=== PATIENT | female | born 1925 | race Caucasian/White ===

== ENCOUNTER → 2016-06-23 | Outpatient (REF) | payer MEDICARE ==
[~2016-06-23] MED LIST: ASCO500T21 PO; IMIP25TA14 PO; INSU100I14 SQ; INSU100I29 SQ; LACT1CAP62 PO; LORA1TAB PO; LVT.025T PO; METH1TAB15 PO; OXYB5TAB9 PO; POTA20TA15 PO; PRD5T PO; SODI1TAB16 PO
[2016-06-23 10:45] LABS: BASOPHILS % (AUTO) 0 % (0-2); EOSINOPHILS # (AUTO) 0.2 10^3uL; EOSINOPHILS % (AUTO) 2 % (0-4); LYMPHOCYTES # (AUTO) 2.2 X10^3; MEAN CORPUSCULAR HEMOGLOBIN 29.7 PG (26.0-34.0); MEAN CORPUSCULAR HGB CONC 33.7 g/dL (31.0-37.0); MEAN CORPUSCULAR VOLUME 88 FL (80-100); MEAN PLATELET VOLUME 10.8 FL (6.0-9.5); MONOCYTES # (AUTO) 0.9 X10^3; MONOCYTES % (AUTO) 11 % (3-11); NEUTROPHILS # (AUTO) 4.8 X10^3; NEUTROPHILS % (AUTO) 59 % (51-67); PLATELET COUNT 126 10^3uL (150-450); WHITE BLOOD COUNT 8.09 10^3uL (4.0-11.0)
== END ==
LOC: LAB 10:34
PROVIDERS: ATTEND Internal Medicine Hematology & Oncology
DX: D69.6 Thrombocytopenia, unspecified (principal)
CPT/HCPCS: 85025

== ENCOUNTER → 2016-07-28 | Outpatient (REF) | payer MEDICARE ==
[2016-07-28 14:41] LABS: BILIRUBIN,URINE Negative (Negative); COLOR,URINE Yellow; GLUCOSE, URINE (UA) Negative (Negative); LEUKOCYTE ESTERASE, URINE 1+ (Negative); UROBILINOGEN,URINE 0.2 mg/dL (0.2-1.0)
[2016-07-28 14:42] LABS: CLARITY,URINE Slightly Cloudy; URINE CENTRIFUGED VOLUME 12 mL
[2016-07-28 14:47] LABS: RBC,URINE 0-2 /HPF
[2016-07-28 16:10] LABS: ANION GAP 14.7 MEQ/L (3-15)
== END ==
LOC: LAB 14:31
PROVIDERS: ATTEND Family Medicine
DX: C85.90 Non-Hodgkin lymphoma, unspecified, unspecified site (principal); E09.65 Drug or chemical induced diabetes mellitus with hyperglycemia
CPT/HCPCS: 80048; 81003; 81015

== ENCOUNTER → 2016-08-03 | Outpatient (REF) | payer MEDICARE ==
[2016-08-03 16:52] LABS: BILIRUBIN,URINE Negative (Negative); CLARITY,URINE Clear; COLOR,URINE Yellow; GLUCOSE, URINE (UA) Negative (Negative); LEUKOCYTE ESTERASE, URINE Negative (Negative); UROBILINOGEN,URINE 0.2 mg/dL (0.2-1.0)
[2016-08-03 17:07] LABS: URINE CENTRIFUGED VOLUME 12 mL
== END ==
LOC: LAB 07-28 15:47
PROVIDERS: ATTEND Family Medicine
DX: N39.0 Urinary tract infection, site not specified (principal)
CPT/HCPCS: 80048; 81003; 81015; 87088

== ENCOUNTER → 2016-08-11 | Outpatient (REF) | payer MEDICARE | LOC: LAB 12:10 | PROVIDERS: ATTEND Family Medicine | DX: E11.9 Type 2 diabetes mellitus without complications (principal) | CPT/HCPCS: 83036 ==

== ENCOUNTER → 2016-08-15 | Outpatient (REF) | payer MEDICARE ==
[2016-08-15 13:24] LABS: BASOPHILS % (AUTO) 0 % (0-2); EOSINOPHILS # (AUTO) 0.2 10^3uL; EOSINOPHILS % (AUTO) 2 % (0-4); LYMPHOCYTES # (AUTO) 1.7 X10^3; MEAN CORPUSCULAR HEMOGLOBIN 30.2 PG (26.0-34.0); MEAN CORPUSCULAR VOLUME 86 FL (80-100); MEAN PLATELET VOLUME 10.9 FL (6.0-9.5); MONOCYTES # (AUTO) 0.9 X10^3; MONOCYTES % (AUTO) 8 % (3-11); NEUTROPHILS # (AUTO) 7.9 X10^3; NEUTROPHILS % (AUTO) 74 % (51-67); PLATELET COUNT 150 10^3uL (150-450); WHITE BLOOD COUNT 10.71 10^3uL (4.0-11.0)
== END ==
LOC: LAB 12:12
PROVIDERS: ATTEND Internal Medicine Hematology & Oncology
DX: D69.6 Thrombocytopenia, unspecified (principal)
CPT/HCPCS: 85025

== ENCOUNTER → 2016-09-22 | Outpatient (REF) | payer MEDICARE ==
[2016-09-22 14:31] LABS: MEAN CORPUSCULAR HEMOGLOBIN 29.6 PG (26.0-34.0); MEAN CORPUSCULAR VOLUME 87 FL (80-100); MEAN PLATELET VOLUME 10.2 FL (6.0-9.5); PLATELET COUNT 122 10^3uL (150-450); WHITE BLOOD COUNT 7.81 10^3uL (4.0-11.0)
[2016-09-22 15:17] LABS: BAND NEUTROPHILS % 1 % (0-6); EOSINOPHILS % 1 % (0-4); LYMPHOCYTES # 1.1 #; MONOCYTES # 0.1 #; MONOCYTES % 1 % (3-11); RBC MORPH NORMAL (NORMAL); SEGMENTED NEUTROPHILS % 83 % (51-67); TOTAL CELLS COUNTED 100
[2016-09-22 15:30] LABS: ANION GAP 14.1 MEQ/L (3-15)
== END ==
LOC: LAB 14:17
PROVIDERS: ATTEND Family Medicine
DX: N18.2 Chronic kidney disease, stage 2 (mild) (principal); E11.9 Type 2 diabetes mellitus without complications; E87.1 Hypo-osmolality and hyponatremia; D69.3 Immune thrombocytopenic purpura
CPT/HCPCS: 80048; 85025

== ENCOUNTER → 2016-10-09 | Outpatient (REF) | payer MEDICARE ==
[2016-10-09 14:24] LABS: BASOPHILS % (AUTO) 0 % (0-2); EOSINOPHILS # (AUTO) 0.2 10^3uL; EOSINOPHILS % (AUTO) 2 % (0-4); LYMPHOCYTES # (AUTO) 1.4 X10^3; MEAN CORPUSCULAR HEMOGLOBIN 29.5 PG (26.0-34.0); MEAN CORPUSCULAR HGB CONC 33.8 g/dL (31.0-37.0); MEAN CORPUSCULAR VOLUME 87 FL (80-100); MEAN PLATELET VOLUME 10.4 FL (6.0-9.5); MONOCYTES # (AUTO) 0.7 X10^3; MONOCYTES % (AUTO) 9 % (3-11); NEUTROPHILS # (AUTO) 5.4 X10^3; NEUTROPHILS % (AUTO) 70 % (51-67); PLATELET COUNT 129 10^3uL (150-450); WHITE BLOOD COUNT 7.78 10^3uL (4.0-11.0)
== END ==
LOC: LAB 13:45
PROVIDERS: ATTEND Internal Medicine Hematology & Oncology
DX: D69.6 Thrombocytopenia, unspecified (principal)
CPT/HCPCS: 85025

== ENCOUNTER → 2016-10-20 | Outpatient (REF) | payer MEDICARE ==
[2016-10-20 13:29] LABS: MEAN CORPUSCULAR HEMOGLOBIN 29.2 PG (26.0-34.0); MEAN CORPUSCULAR HGB CONC 34.2 g/dL (31.0-37.0); MEAN PLATELET VOLUME 10.6 FL (6.0-9.5); WHITE BLOOD COUNT 7.89 10^3uL (4.0-11.0)
[2016-10-20 13:35] LABS: ANION GAP 13.3 MEQ/L (3-15)
== END ==
LOC: LAB 11:45
PROVIDERS: ATTEND Family Medicine
DX: C85.90 Non-Hodgkin lymphoma, unspecified, unspecified site (principal); D69.3 Immune thrombocytopenic purpura
CPT/HCPCS: 80048; 85027

== ENCOUNTER → 2016-10-25 | Outpatient (REF) | payer MEDICARE ==
[2016-10-25 17:02] LABS: ANION GAP 14.1 MEQ/L (3-15)
== END ==
LOC: LAB 15:22
PROVIDERS: ATTEND Family Medicine
DX: E87.1 Hypo-osmolality and hyponatremia (principal)
CPT/HCPCS: 80048

== ENCOUNTER → 2016-11-06 | Outpatient (REF) | payer MEDICARE ==
[2016-11-06 13:29] LABS: BASOPHILS % (AUTO) 0 % (0-2); EOSINOPHILS # (AUTO) 0.3 10^3uL; EOSINOPHILS % (AUTO) 3 % (0-4); LYMPHOCYTES # (AUTO) 1.3 X10^3; MEAN CORPUSCULAR HEMOGLOBIN 29.4 PG (26.0-34.0); MEAN CORPUSCULAR HGB CONC 33.9 g/dL (31.0-37.0); MEAN CORPUSCULAR VOLUME 87 FL (80-100); MEAN PLATELET VOLUME 10.3 FL (6.0-9.5); MONOCYTES # (AUTO) 0.8 X10^3; MONOCYTES % (AUTO) 9 % (3-11); NEUTROPHILS # (AUTO) 6.2 X10^3; NEUTROPHILS % (AUTO) 73 % (51-67); PLATELET COUNT 118 10^3uL (150-450); WHITE BLOOD COUNT 8.57 10^3uL (4.0-11.0)
[2016-11-06 13:50] LABS: ANION GAP 10.4 MEQ/L (3-15)
== END ==
LOC: LAB 13:08
PROVIDERS: ATTEND Family Medicine
DX: D69.3 Immune thrombocytopenic purpura (principal); N18.2 Chronic kidney disease, stage 2 (mild); E87.1 Hypo-osmolality and hyponatremia
CPT/HCPCS: 80048; 85025

== ENCOUNTER → 2016-11-14 | Outpatient (REF) | payer MEDICARE ==
[2016-11-14 15:55] LABS: BASOPHILS % (AUTO) 0 % (0-2); EOSINOPHILS # (AUTO) 0.1 10^3uL; EOSINOPHILS % (AUTO) 1 % (0-4); LYMPHOCYTES # (AUTO) 1.2 X10^3; MEAN CORPUSCULAR HEMOGLOBIN 29.5 PG (26.0-34.0); MEAN CORPUSCULAR HGB CONC 33.9 g/dL (31.0-37.0); MEAN CORPUSCULAR VOLUME 87 FL (80-100); MEAN PLATELET VOLUME 9.9 FL (6.0-9.5); MONOCYTES # (AUTO) 0.7 X10^3; MONOCYTES % (AUTO) 7 % (3-11); NEUTROPHILS % (AUTO) 79 % (51-67); PLATELET COUNT 140 10^3uL (150-450)
[2016-11-14 16:08] LABS: ANION GAP 12.7 MEQ/L (3-15)
== END ==
LOC: LAB 15:40
PROVIDERS: ATTEND Family Medicine
DX: L29.8 Other pruritus (principal); I48.0 Paroxysmal atrial fibrillation; E11.9 Type 2 diabetes mellitus without complications
CPT/HCPCS: 80048; 85025